=== PATIENT | male | born 1990 | race Two or more races ===

== ENCOUNTER 2018-03-15 08:15 | Emergency (ER) | payer MEDICAID, OTHER ==
[~2018-03-15] VITALS: Ht 180.3 cm; Wt 81.6 kg
[2018-03-15 08:21] VITALS: BP 131/82
== END 2018-03-15 09:38 | disposition left against medical advice (07) ==
LOC: ER 08:18
DX: F41.9 Anxiety disorder, unspecified (principal); F12.10 Cannabis abuse, uncomplicated; Z53.21 Procedure and treatment not carried out due to patient leaving prior to being seen by health care provider
CPT/HCPCS: 93005